=== PATIENT | female | born 1945 | race Caucasian/White ===

== ENCOUNTER 2018-01-02 14:58 | Emergency (ER) | payer MEDICARE ==
[~2018-01-02] VITALS: Ht 170.2 cm; Wt 80.0 kg
[~2018-01-02 14:58] MED LIST: ADLT ASA LOW81 MG PO; ANTIVERT25 MG OR; ANTIVERT25 MG PO; CALCIUM + D600 MG PO; LIPITOR10 MG PO; LIPITOR20 MG PO; METOPROL TAR100 M1 PO; METOPROLOL50 MG PO; NORVASC10 MG PO; NORVASC5 M1 PO; PERCOCET 5/321 COMBO PO; PRESERVISION PO; PREVACID30 M3 PO; PRILOSEC20 MG PO; TYLENOL500 MG PO
[2018-01-02] MEDS ORDERED: ZPAK PO (16:04)
[2018-01-02] MEDS ORDERED: CHERATUSSIN PO (16:14)
[2018-01-02] MEDS ORDERED: ONDANSETRON4 MG PO (16:14)
[2018-01-02 16:24] VITALS: BP 120/60
== END 2018-01-02 16:20 | disposition home or self-care (01) ==
LOC: ED 14:58
DX: J40 Bronchitis, not specified as acute or chronic (principal); E11.9 Type 2 diabetes mellitus without complications; K21.9 Gastro-esophageal reflux disease without esophagitis; I10 Essential (primary) hypertension

== ENCOUNTER → 2018-12-10 | Outpatient (REF) | payer MEDICARE ==
[~2018-12-10] MED LIST changes: +CHERATUSSIN PO; +ONDANSETRON4 MG PO; +ZPAK PO
== END | disposition home or self-care (01) ==
LOC: DI 13:38
PROVIDERS: ATTEND Nurse Practitioner Family
DX: R07.81 Pleurodynia (principal)

== ENCOUNTER → 2018-12-28 | Outpatient (REF) | payer MEDICARE | END | disposition home or self-care (01) | LOC: MAMMO 12-15 13:30 | PROVIDERS: ATTEND Nurse Practitioner Family | DX: Z12.31 Encounter for screening mammogram for malignant neoplasm of breast (principal) ==

== ENCOUNTER 2020-04-24 14:29 | Observation (INO) | payer MEDICARE ==
[~2020-04-24] VITALS: Ht 170.2 cm; Wt 84.8 kg
--- NOTE | 2020-04-24 14:30 | NUR ---
PT TO ROOM VIA EMS STRETCHER. PT WAS GIVEN 324 MG OF ASA AND 1 NITRO SL BY EMS. PT IS NOW PAIN FREE.
[2020-04-24 15:00] LABS: HEMATOCRIT 38.9 % (37.0-47.0); HEMOGLOBIN 12.9 g/dl (12.0-16.0); IMMATURE GRANULOCYTES 0.2 % (0.0-5.0); MEAN CELL VOLUME 88.2 fL CALC (80.0-100.0); MEAN CORPUSCULAR HGB 29.3 pG CALC (26.0-32.0); MEAN CORPUSCULAR HGB CONC 33.2 g/dL CAL (32.0-36.0); NEUT# 3.32 thou/uL (2.00-7.15); RED BLOOD COUNT 4.41 mill/uL (4.20-5.60); RED CELL DISTRI WIDTH 12.6 % (11.5-15.5)
--- NOTE | 2020-04-24 15:00 | NUR ---
PATIENT REMAINS PAIN FREE AT THIS TIME. RES EVEN AND UNLABORED. CALL KIRAN WITHIN REACH.
[2020-04-24 15:37] LABS: ALKALINE PHOSPHATASE 112 u/l (38-126); ANION GAP 6 (6-22 (CALC)); BILIRUBIN, TOTAL 0.6 mg/dL (0.0-1.4); BUN 11 mg/dL (8-23); BUN/CREATININE RATIO 17 (12-20 (CALC)); CARBON DIOXIDE 29 mmol/l (22-30); CHLORIDE 101 mmol/l (95-108); CREATININE 0.6 mg/dL (0.5-1.0); GFR > 60 ML/MIN (>=60 (CALC)); GFR FOR AFR.AMER. > 60 ML/MIN (>=60 (CALC)); LIPASE 94 u/l (23-300); POTASSIUM 4.2 mmol/l (3.5-5.1); SGOT/AST 30 u/l (9-36); SODIUM 132 mmol/l (137-146); TOTAL PROTEIN 6.7 g/dL (6.3-8.2)
--- NOTE | 2020-04-24 15:45 | NUR ---
PATIENT RESTING IN STRETCHER, MONITOR SHOWING SINUS REJI. PATIENT DENIES ANY CHEST PAIN.
--- NOTE | 2020-04-24 16:10 | NUR ---
MD AT BEDSIDE TO DISCUSS RESUTS AND PLAN OF CARE.
[2020-04-24] MEDS ORDERED: METOPROL TAR25 MG PO (16:27)
--- NOTE | 2020-04-24 17:05 | NUR ---
PATIENT AWARE OF PLAN FOR ADMISSION AND DENIES ANY CHEST PAIN AT THIS TIME. MONITOR SHOWING SINUS REJI.
[2020-04-24] MEDS ORDERED: NEXIUM40 M1 PO (17:45)
[2020-04-24] MEDS ORDERED: SERTRALINE50 MG PO (17:48)
[2020-04-24] MEDS ORDERED: LUTEIN40 MG PO (17:49)
[2020-04-24] MEDS ORDERED: FOLIC ACID1 MG PO (17:50)
[2020-04-24] MEDS ORDERED: GLIMEPIRIDE2 MG PO (17:50)
--- NOTE | 2020-04-24 18:00 | NUR ---
PT REPORT CALLED TO ARY SAUCEDA.
--- NOTE | 2020-04-24 18:06 | NUR ---
RECEIVED REPORT FROM RICHARD BEST
--- NOTE | 2020-04-24 18:20 | NUR ---
Admission Note Report Given to: ARY SAUCEDA Transported by: Wheelchair X Stretcher Transported with: X Nurse Transporter X Patent IV O2 X Rhinologist Location: ICU X MS2 PATIENT TO ROOM IN STABLE CONDITION.
--- NOTE | 2020-04-24 18:21 | NUR ---
PT TRANSPORTED FROM ER VIA WC WITH NO DISTRESS NOTED. IV SITE IS FREE FROM REDNESS OR EDEMA. TELE MONITOR IN PLACE.
[2020-04-24 18:25] VITALS: BP 147/71
--- NOTE | 2020-04-24 20:48 | NUR ---
PATIENT RESTING IN BED. SHIFT ASSESSMENT COMPLETE. NO DISTRESS NOTED. DENIES PAIN. RESPIRATIONS EVEN AND UNLABORED. ABLE TO MAKE NEEDS KNOWN. BOWELS SOUNDS ACTIVE. CALL LIGHT IN REACH. WILL CONTINUE TO MONITOR.
[2020-04-24 23:27] VITALS: BP 140/62
--- NOTE | 2020-04-25 00:30 | NUR ---
PATIENT RESTING IN BED. RESPIRATIONS EVEN AND UNLABORED. DENIES PAIN. NO DISTRESS NOTED. CONTINUE TO MONITOR.
[2020-04-25 03:15] VITALS: BP 137/61
--- NOTE | 2020-04-25 04:07 | NUR ---
PATIENT RESTING IN BED. NO DISTRESS NOTES. RESPIRATIONS EVEN AND UNLABORED. CALL LIGHT IN REACH. CONTINUE TO MONITOR.
--- NOTE | 2020-04-25 07:10 | NUR ---
REPORT RECEIVED FROM ESTEPHANIA LUNDBERG;PT APPEARS TO BE SLEEPING IN SUPINE POSITION;RESPIRATIONS EVEN AND UNLABORED ON RA;NO S/S OF DISTRESS NOTED;TELE MONITORING IN PLACE;IV FLUIDS INFUSING WITH EASE PER ORDER;ACCUCHECK 129, NO COVERAGE NEEDED;ALL SAFETY PRECAUTIONS REMAIN IN PLACE WITH BED IN THE LOWEST POSITION AND CALL LIGHT IN REACH;WILL CONTINUE TO MONITOR
[2020-04-25 09:08] VITALS: BP 116/58
--- NOTE | 2020-04-25 09:10 | NUR ---
PT RESTING IN SEMI FOWLERS POSITION,A&O X3;VS OBTAINED AND ASSESSMENT COMPLETED;PT REPORTS CHEST PRESSURE WITH MOVEMENT, PAIN SCALE AND REPORTING EDUCATED;RESPIRATIONS EVEN AND UNLABORED ON RA,CLEAR LUNG SOUNDS;ABDOMEN SOFT ON PALPATION AND ACTIVE IN ALL 4 QUADRANTS;STRONG PEDAL PULSES;SKIN INTACT;TELE MONITORING IN PLACE;EMS #20G TO LEFT WRIST INFUSING NS @ 100ML/HR,SITE APPEARS HEALTHY;PT DENIES ANY ADDITIONAL NEEDS AT THIS TIME AND IS ENCOURAGED TO CALL FOR ASSISTANCE IF NEEDED;FALL PRECAUTIONS IN PLACE WITH CALL LIGHT IN REACH;WILL CONTINUE TO MONITOR
[2020-04-25 11:27] VITALS: BP 135/48
--- NOTE | 2020-04-25 11:39 | NUR ---
AT BEDSIDE DISCUSSING POC.
[2020-04-25] MEDS ORDERED: NEXIUM40 M1 PO (11:41)
--- NOTE | 2020-04-25 11:50 | NUR ---
PT RESTING IN SEMI FOWLERS POSITION;RESPIRATIONS EVEN AND UNLABORED ON RA;PT DENIES ANY CURRENT PAIN OR NEEDS;TELE MONITORING IN PLACE;IV SITE PATENT;PT VERBALIZES UNDERSTANDING ON PLAN TO D/C HOME;ENCOURAGED TO CALL FOR ASSISTANCE IF NEEDED;CALL LIGHT IN REACH;WILL CONTINUE TO MONITOR
--- NOTE | 2020-04-25 13:05 | NUR ---
Discharge instructions given. Patient verbalizes understanding of same. Discharged in stable condition via Wheelchair to Home with spouse. All belongings sent with pt. PT TRANSPORTED TO [facility] IN STABLE CONDITION VIA WHEELCHAIR ACCOMPANIED BY ARY DALY. SPOUSE TO TRANSPORT PT HOME.
--- NOTE | 2020-04-25 13:09 | NUR ---
ALL DISCHARGE INSTRUCTIONS PROVIDED AT THIS TIME;PT INSTRUCTED TO F/U WITH .MONITOR BP AND HEART RATE AND KEEP A LOG FOR REVIEW. TAKE METOPROLOL BID AND CHECK HEART RATE PRIOR. HOLD IS <60;PT VERBALIZES UNDERSTANDING AND DENIES ANY CURRENT QUESTIONS OR NEEDS;IV SITE REMOVED WITH CATHETER INTACT AND TELE MONITORING D/C;SPOUSE TO TRANSPORT PT HOME;WILL CONTINUE TO MONITOR
== END 2020-04-25 13:15 | disposition home or self-care (01) ==
LOC: ED 14:29 → ED-I 16:00 → ED 16:12 → MS2 16:13 → ED-I 16:13 → MS2 17:28
PROVIDERS: ADMIT Internal Medicine; ATTEND Internal Medicine
DX: R07.9 Chest pain, unspecified (principal); I10 Essential (primary) hypertension; E11.9 Type 2 diabetes mellitus without complications; K21.9 Gastro-esophageal reflux disease without esophagitis; E78.5 Hyperlipidemia, unspecified; I25.10 Atherosclerotic heart disease of native coronary artery without angina pectoris; Z20.828 Contact with and (suspected) exposure to other viral communicable diseases
CPT/HCPCS: G0378; S0164

== ENCOUNTER 2021-09-01 16:04 | Emergency (ER) | payer MEDICARE ==
[~2021-09-01] VITALS: Ht 170.2 cm; Wt 80.0 kg
[~2021-09-01 16:04] MED LIST changes: +FOLIC ACID1 MG PO; +GLIMEPIRIDE2 MG PO; +LUTEIN40 MG PO; +METOPROL TAR25 MG PO; +NEXIUM40 M1 PO; +SERTRALINE50 MG PO
[2021-09-01 16:33] LABS: HEMATOCRIT 41.1 % (37.0-47.0); HEMOGLOBIN 13.5 g/dl (12.0-16.0); IMMATURE GRANULOCYTES 0.4 % (0.0-5.0); MEAN CELL VOLUME 91.5 fL CALC (80.0-100.0); MEAN CORPUSCULAR HGB 30.1 pG CALC (26.0-32.0); MEAN CORPUSCULAR HGB CONC 32.8 g/dL CAL (32.0-36.0); NEUT# 2.71 thou/uL (2.00-7.15); RED BLOOD COUNT 4.49 mill/uL (4.20-5.60); RED CELL DISTRI WIDTH 12.9 % (11.5-15.5)
[2021-09-01 16:51] LABS: ALBUMIN 4.1 g/dL (3.2-5.0); ALKALINE PHOSPHATASE 89 u/l (38-126); AMYLASE 94 u/l (30-110); ANION GAP 10 (6-22 (CALC)); BUN 14 mg/dL (8-23); BUN/CREATININE RATIO 20 (12-20 (CALC)); CARBON DIOXIDE 30 mmol/l (22-30); CHLORIDE 101 mmol/l (95-108); CREATININE 0.7 mg/dL (0.5-1.0); GFR > 60 ML/MIN (>=60 (CALC)); GFR FOR AFR.AMER. > 60 ML/MIN (>=60 (CALC)); LIPASE 85 u/l (23-300); MAGNESIUM 2.1 mg/dL (1.6-2.3); POTASSIUM 4.6 mmol/l (3.5-5.1); SODIUM 136 mmol/l (137-146); TOTAL PROTEIN 7.4 g/dL (6.3-8.2)
[2021-09-01 17:00] LABS: BILIRUBIN, TOTAL 1.5 mg/dL (0.0-1.4); SGOT/AST 76 u/l (9-36)
[2021-09-01 17:23] LABS: ACT PARTIAL THROMBO TIME 24.5 SECONDS (20.0-32.5); PROTHROMBIN TIME 10.8 SECONDS (9.0-12.5)
[2021-09-01 18:27] LABS: URINE BILIRUBIN - DIPSTICK NEGATIVE (NEGATIVE); URINE BLOOD DIPSTICK NEGATIVE (NEGATIVE); URINE COLOR YELLOW; URINE GLUCOSE - DIPSTICK NEGATIVE (NEGATIVE); URINE KETONE 15 mg/dL (NEGATIVE); URINE LEUK ESTERASE NEGATIVE (NEGATIVE); URINE PH 6.5 (4.5-8.0); URINE PROTEIN - DIPSTICK NEGATIVE (NEG-TRACE)
[2021-09-01 18:29] LABS: URINE NITRITE - DIPSTICK NEGATIVE (Negative)
[2021-09-01 19:21] VITALS: BP 176/81
== END 2021-09-01 19:35 | disposition home or self-care (01) ==
LOC: ED 16:04
DX: A08.11 Acute gastroenteropathy due to Norwalk agent (principal); Z20.822 Contact with and (suspected) exposure to COVID-19
CPT/HCPCS: Q9967

== ENCOUNTER 2022-09-01 11:29 | Emergency (ER) | payer MEDICARE ==
[~2022-09-01] VITALS: Ht 170.2 cm; Wt 77.0 kg
[2022-09-01 12:56] VITALS: BP 183/61
[2022-09-01 13:01] VITALS: BP 152/66
[2022-09-01 14:01] VITALS: BP 149/48
[2022-09-01] MEDS ORDERED: NAPROXEN DR375 M1 PO ×2 (14:26→15:46)
[2022-09-01 15:37] VITALS: BP 149/48
== END 2022-09-01 16:07 | disposition home or self-care (01) ==
LOC: ED 11:29
PROC: 2W3QX1Z Immobilization of Right Lower Leg using Splint (ICD-10-PCS; principal; 2022-09-01)
DX: S82.832A Other fracture of upper and lower end of left fibula, initial encounter for closed fracture (principal); W01.0XXA Fall on same level from slipping, tripping and stumbling without subsequent striking against object, initial encounter; Y92.009 Unspecified place in unspecified non-institutional (private) residence as the place of occurrence of the external cause